=== PATIENT | male | born 2000 | race Caucasian/White ===

== ENCOUNTER 2022-11-10 12:32 | Emergency (ER) | payer OTHER, SELFPAY ==
[2022-11-10 13:02] VITALS: BP 117/69; PULSE 83; RESP 18; TEMP 37.2; O2SAT 99
--- NOTE | 2022-11-10 13:47 | ED.GENADULT ---
HPI - General Adult General Chief complaint: Upper Respiratory Infection Stated complaint: sorethroat Time Seen by Provider: 11/10/22 13:47 Source: patient Mode of arrival: ambulatory Limitations: no limitations History of Present Illness HPI narrative: 22-year-old male patient presents to the [facility] with complaints of sore throat for the past 8 days. Patient states the symptoms started off with a fever, fatigue, chills, runny and stuffy nose and states that most of that has resolved but continues to have sore throat. Denies any chills, body aches ir abdominal pain, nausea, vomiting or diarrhea. Denies chest pain or shortness breath. Patient states he has tried taking some [id number] allergy medication. Related Data Home Medications Medication Instructions Recorded Confirmed No Home Medications 11/10/22 11/10/22 Allergies Allergy/AdvReac Type Severity Reaction Status Date / Time No Known Allergies Allergy Mild Verified 11/10/22 13:16 Review of Systems Review of Systems: CONSTITUTIONAL: Denies fever, chills, or sweats. EYES: Denies visual changes, redness, or discharge. ENT: Denies rhinorrhea, congestion, Positive sore throat, or otalgia. CARDIOVASCULAR: Denies chest pain, palpitations, or edema. RESPIRATORY: Denies cough or dyspnea. GASTROINTESTINAL: Denies abdominal pain, nausea, vomiting, or diarrhea. GENITOURINARY: Denies dysuria or hematuria. SKIN: Denies rash or itching. MUSCULOSKELETAL: Denies back pain, joint pain, or myalgia. NEUROLOGIC: Denies headache, numbness, or weakness. PSYCHIATRIC: Denies anxiety or depression. [facility] Past Medical History Medical History Ear infection Comments At the time of my signature I agree with nursing past medical history, surgical, social, and family history. There is no relevant family history pertinent to the presenting complaint. Exam Narrative: GENERAL: Well-appearing, well-nourished, and in no acute distress. HEAD: Normocephalic, atraumatic. EYES: PERRLA and EOMI. ENT: Nares clear, no rhinorrhea or epistaxis. Mucous membranes moist. posterior pharynx with no erythema, tonsillar min, exudates or lesions present. There is some postnasal drip noted to the posterior pharynx. Bilateral TMs are clear no erythema or foreign bodies the canal. NECK: Supple. No lymphadenopathy CHEST: Clear to auscultation. No respiratory distress. HEART: Regular rate and rhythm. No murmur heard. Normal peripheral pulses. ABDOMEN: Soft, nontender, nondistended, normal active bowel sounds. EXTREMITIES: Normal range of motion. No edema. SKIN: Warm, dry, no rash. NEURO: No focal deficits. Alert and oriented x3. Course Course Level of Care: Express Care Visit Reevaluation(s) Reevaluation #1: Discussed with patient that her his mono and strep test are both negative today. We will send the strep off to the lab for culture and if it does come back positive at that time we will place him on antibiotics. Encouraged patient to use [id number] medications and home remedies to help soothe the throat including warm salt water gargles, hot tea, honey [id number] Tylenol ibuprofen. Patient verbalized understanding denies any other questions or concerns at this time Date: 11/10/22 Time: 14:11 Vital Signs Vital signs: Vital Signs Temperature 37.2 C 11/10/22 13:02 Pulse Rate 83 11/10/22 13:02 Respiratory Rate 18 11/10/22 13:02 Blood Pressure 117/69 11/10/22 13:02 Pulse Oximetry 99 11/10/22 13:02 Oxygen Delivery Room Air 11/10/22 13:02 Temperature 37.2 C 11/10/22 13:02 Pulse Rate 83 11/10/22 13:02 Respiratory Rate 18 11/10/22 13:02 Blood Pressure 117/69 11/10/22 13:02 Pulse Oximetry 99 11/10/22 13:02 Oxygen Delivery Room Air 11/10/22 13:02 vital signs reviewed. Medical Decision Making MDM Narrative Medical decision making narrative: discussed with albin
== END 2022-11-10 14:13 | disposition home or self-care (01) ==
PROVIDERS: Emergency Provider Nurse Practitioner Family
DX: J02.9 Acute pharyngitis, unspecified (principal)
CPT/HCPCS: 36416; 86308; 87081; 87880; 99213; G0463